=== PATIENT | female | born 1970 | race Two or more races ===

== ENCOUNTER 2019-09-05 06:50 | Day surgery (SDC) | payer OTHER | END 2019-09-05 12:37 | disposition home or self-care (01) | LOC: AMB-ENDOS 06:50 | PROVIDERS: ATTEND Internal Medicine Gastroenterology | DX: D12.3 Benign neoplasm of transverse colon (principal) ==

== ENCOUNTER 2022-10-12 06:39 | Day surgery (SDC) | payer OTHER | END 2022-10-12 11:55 | disposition home or self-care (01) | LOC: AMB-ENDOS 06:39 | PROVIDERS: ATTEND Internal Medicine Gastroenterology | DX: D12.0 Benign neoplasm of cecum (principal) ==

== ENCOUNTER 2023-04-19 11:30 | Inpatient (IN) | payer OTHER ==
[~2023-04-19] VITALS: Ht 160 cm; Wt 66.7 kg
[2023-04-21] MEDS ORDERED: NORVASC5 MG PO (15:42)
[2023-04-21] MEDS ORDERED: ATORVASTATIN CA10 MG PO (15:42)
[2023-04-26 10:44] LABS: HEMATOCRIT 38.7 % (36.0-45.00); HEMOGLOBIN 13.1 g/dL (12.0-15.00); MEAN CELL VOLUME 92.9 fL (80.00-100.00); MEAN CORPUSCULAR HEMOGLOBIN 31.5 pg (27.00-32.0); PLATELET COUNT 220 K/uL (150-450); RED BLOOD COUNT 4.17 M/uL (4.00-6.00); RED CELL DISTRIBUTION WIDTH 13.9 % (11.5-14.5)
[2023-04-26 11:28] LABS: ALBUMIN 4.1 gm/dL (3.4-5.0); CALCIUM 8.4 mg/dL (8.5-10.1); CREATININE SERUM 0.81 mg/dL (0.55-1.02); GFR 73.41; MAGNESIUM 2.5 mg/dL (1.8-2.4); PHOSPHOROUS 3.6 mg/dL (2.5-4.9); POTASSIUM 3.71 mEq/L (3.5-5.1)
[2023-04-27 06:47] LABS: HEMATOCRIT 39.5 % (36.0-45.00); HEMOGLOBIN 13.7 g/dL (12.0-15.00); MEAN CELL VOLUME 92.2 fL (80.00-100.00); MEAN CORPUSCULAR HEMOGLOBIN 31.8 pg (27.00-32.0); MEAN CORPUSCULAR HGB CONC 34.6 g/dl (32.0-36.0); PLATELET COUNT 198 K/uL (150-450); RED BLOOD COUNT 4.29 M/uL (4.00-6.00)
[2023-04-27 07:01] LABS: ALBUMIN 3.9 gm/dL (3.4-5.0); CALCIUM 9.1 mg/dL (8.5-10.1); CREATININE SERUM 0.84 mg/dL (0.55-1.02); GFR 70.39; MAGNESIUM 2.5 mg/dL (1.8-2.4); PHOSPHOROUS 3.8 mg/dL (2.5-4.9); POTASSIUM 3.95 mEq/L (3.5-5.1)
[2023-04-28 07:33] LABS: HEMOGLOBIN 12.5 g/dL (12.0-15.00); MEAN CELL VOLUME 94.6 fL (80.00-100.00); MEAN CORPUSCULAR HGB CONC 33.8 g/dl (32.0-36.0); PLATELET COUNT 175 K/uL (150-450); RED BLOOD COUNT 3.91 M/uL (4.00-6.00); RED CELL DISTRIBUTION WIDTH 13.9 % (11.5-14.5)
[2023-04-28 08:11] LABS: CALCIUM 8.5 mg/dL (8.5-10.1); CREATININE SERUM 0.82 mg/dL (0.55-1.02); GFR 72.38; MAGNESIUM 2.3 mg/dL (1.8-2.4); PHOSPHOROUS 2.4 mg/dL (2.5-4.9); POTASSIUM 3.6 mEq/L (3.5-5.1)
[2023-04-29] MEDS ORDERED: HYOSCYAMINE0.125 M1 SL (14:48)
== END 2023-04-29 15:24 | disposition home or self-care (01) | DRG 331 ==
LOC: O/R 04-26 05:31 → SURH 04-26 05:31 → SURG 04-26 07:00 → SURH 04-26 10:01 → SURG 04-26 11:30 → SURH 04-29 15:24
PROVIDERS: Internal Medicine Geriatric Medicine; ADMIT Surgery; ATTEND Surgery
PROC: 07BC4ZX Excision of Pelvis Lymphatic, Percutaneous Endoscopic Approach, Diagnostic (ICD-10-PCS; 2023-04-26)
PROC: 0DTF4ZZ Resection of Right Large Intestine, Percutaneous Endoscopic Approach (ICD-10-PCS; principal; 2023-04-26 07:00)
DX: D12.0 Benign neoplasm of cecum (principal); R59.0 Localized enlarged lymph nodes